=== PATIENT | female | born 1950 | race Native Hawaiian/Other Pacific Islander ===

== ENCOUNTER 2016-08-23 13:51 | Outpatient (CLI) | payer OTHER | END 2016-08-23 19:29 | disposition home or self-care (01) | LOC: MAMMO 13:51 | DX: Z12.31 Encounter for screening mammogram for malignant neoplasm of breast (principal) | CPT/HCPCS: G0202-TC ==

== ENCOUNTER 2018-01-23 09:39 | Outpatient (CLI) | payer OTHER | END 2018-01-23 20:39 | disposition home or self-care (01) | LOC: MAMMO 09:39 | DX: Z12.31 Encounter for screening mammogram for malignant neoplasm of breast (principal) ==

== ENCOUNTER 2018-08-08 11:13 | Outpatient (CLI) | payer OTHER ==
[2018-08-08 11:46] LABS: PLATELET COUNT 290 K/uL (152-353)
[2018-08-08 11:59] LABS: POTASSIUM 4.2 mmol/L (3.6-5.2); SODIUM 138 mmol/L (136-145)
== END 2018-08-08 19:40 | disposition home or self-care (01) ==
LOC: LABW 11:13
PROVIDERS: Internal Medicine
DX: R30.0 Dysuria (principal); I10 Essential (primary) hypertension; N18.9 Chronic kidney disease, unspecified; Z79.899 Other long term (current) drug therapy; E11.9 Type 2 diabetes mellitus without complications; E53.8 Deficiency of other specified B group vitamins; E55.9 Vitamin D deficiency, unspecified
CPT/HCPCS: 36415; 80053; 81000; 82043; 82306; 82570; 82607; 82746; 83036; 83735; 84100; 84155; 84439; 84443; 84550; 85027; 85651; 86038; 86141; 86430